=== PATIENT | male | born 1970 | race Hispanic/Latino ===

== ENCOUNTER 2022-10-19 07:54 | Emergency (ER) | payer SELFPAY ==
--- OUTSIDE RECORDS SUMMARY | 2022-10-19 07:56 | XMS REPORT | Continuity of Care Document ---
:1970 Author Organization [facility] t Address [address] [place] [address] Care Team Providers Name Role Phone Deidre Pacheco Primary Care Physician [phone] Problems This patient has no known problems. Allergies, Adverse Reactions, Alerts This patient has no known allergies or adverse reactions. Medications Ordered Filled Start Stop Current Ordering Indication Dosage Frequency Signature Comments Components Source Medication Medication Date Date Medication? Clinician (SIG) Name Name TAKE 1 No 1000 TABLET 8-11 TWICE 00:00: DAILY. 00 atorvastati No 1mg n 20 mg 8-27 tablet 00:00: 00 metformin 0 No 2mg ER 500 mg 8-24 tablet,exte 00:00: nded 00 release 24 hr Vital Signs Vital Name Observation Time Observation Value Comments Source BP Systolic 2022-06-27 16:30:00 118 mm[Hg] BP Diastolic 2022-06-27 16:30:00 70 mm[Hg] Weight Measured 2022-06-27 16:30:00 178.60 pounds Height Measured 2022-06-27 16:30:00 67.00 inches Body Temperature 2022-06-27 16:30:00 97.40 degrees Heart Rate 2022-06-27 16:30:00 80.00 /min Respiratory Rate 2022-06-27 16:30:00 BP Systolic 2021-07-10 17:17:00 BP Diastolic 2021-07-10 17:17:00 Weight Measured 2021-07-10 17:17:00 184.00 pounds Height Measured 2021-07-10 17:17:00 67.00 inches Body Temperature 2021-07-10 17:17:00 98.10 degrees Heart Rate 2021-07-10 17:17:00 79.00 /min Respiratory Rate 2021-07-10 17:17:00 16.00 /min BP Systolic 2021-07-05 08:43:00 108 mm[Hg] BP Diastolic 2021-07-05 08:43:00 66 mm[Hg] Weight Measured 2021-07-05 08:43:00 182.80 pounds Height Measured 2021-07-05 08:43:00 67.00 inches Body Temperature 2021-07-05 08:43:00 97.30 degrees Heart Rate 2021-07-05 08:43:00 73.00 /min Respiratory Rate 2021-07-05 08:43:00 16.00 /min Procedures This patient has no known procedures. Plan of Care Planned Activity Planned Date Details Comments Source Goal Plan of Care Note [code = 85882-8] Goal Plan of Care Note [code = 50569-8] Goal Plan of Care Note [code = 32499-2] Goal Plan of Care Note [code = 38692-8] Goal Plan of Care Note [code = 52531-4] Goal Plan of Care Note [code = 28952-4] Goal Plan of Care Note [code = 29479-4] Goal Plan of Care Note [code = 58834-3] Encounters Start End Encounter Admission Attending Care Care Encounter Source Date/Time Date/Time Type Type Clinicians Facility Department ID 2022-06-27 2022-06-27 Outpatient [id number]- [id number] af [id number] 00:00:00 00:00:00 Visit [id number] Results Test Description Test Time Test Comments Results Result Comments Source LIPID PANEL 2022-06-29 05:30:28 Test Item Value Reference Range Interpretation Comme nts CHOLESTEROL (test code = 2210) 199 MG/DL <200 TRIGLYCERIDES (test code = 2232) 157 MG/DL <150 H HDL CHOLESTEROL (test code = 41 MG/DL >39 2220) CALC LDL CHOL (test code = 2237) 131 MG/DL <100 H NOTE: CALCULATED LDL IS BASED ON ZHANG-QUIGLEY METHOD WHICHINCLUDES A DJUSTABLE TRIGLYCERIDE:VL DL CHOLESTEROL RATIO.THIS FACT OR VARIES BY MEASURED TRIGLY CERIDE AND NON-HDLCHOLESTE ROL CONCENTRATIONS WITH INCREASED CALCULATED LDL SEENIN HIGHER T RIGLYCERIDE OR LOWER NON-HDL S PECIMENS. FOR MOREINFORMATION , SEE CLIENT ANNOUNCEMENT AT [email or web address] Now [email or web address] [email or web address] RISK RATIO LDL/HDL (test code = 3.20 RATIO <3.55 2237) COMPREHENSIVE METABOLIC [id number] 05:30:28 Test Item Value Reference Range Interpretation Comments GLUCOSE (test code = 212 MG/DL 70-99 H 2216) BUN (test code = 17 MG/DL 6-20 2207) CREATININE (test 1.00 MG/DL 0.80-1.40 code = 221) eGFR (2020 CKD-EPI) 91 >60 (test code = 26907) ML/MIN/1.73 CALC BUN/CREAT (test 17 RATIO - code = 2235) SODIUM (test code = 140 MEQ/L 227-077 9405) POTASSIUM (test code 4.6 MEQ/L 3.5-5.4 = 2227) CHLORIDE (test code 101 MEQ/L 95-107 = 2214) CARBON DIOXIDE (test 29 MEQ/L 19-31 code = 2206) CALCIUM (test code = 9.8 MG/DL 8.5-10.5 2208) PROTEIN, TOTAL (test 7.6 G/DL 6.1-8.3 code = 2229) ALBUMIN (test code = 4.4 G/DL 3.5-5.2 2200) CALC GLOBULIN (test 3.2 G/DL 1.9-3.7 code = 2240) CALC A/G RATIO (test 1.4 RATIO 1.0-2.6 code = 2234) BILIRUBIN, TOTAL 0.4 MG/DL See_Comment [Automated message] (test code = 2207) The syste m which generated this result transmitted ref erence range: <=1.2. T he reference range was not used to int erpret this result as normal/abnormal . ALKALINE PHOSPHATASE 105 U/L 40-121 (test code = 2204) AST (test code = 18 U/L 9-50 2217) ALT (test code = 22 U/L 5-50 UNLESS OTH ERWISE 2218) INDICATED, ALL TESTING PERFORM [facility], [address] [place] [address] [facility] DIRECTOR: CASSIE JAMES M.D. CLIA NUMBER [id number] CAP ACCREDITATION N O. [id number] HEMOGLOBIN [id number] 03:47:32 Test Item Value Reference Range Interpretation Comments HEMOGLOBIN A1c (test 8.7 % 4.2-5.6 H AMERIC AN DIABETES code = 86054) ASSOCIATION IDELINES FOR HGB A1C: PREDIABETES/INC REASED RISK . . . . . . . 5.7 -6.4% DIAGNOSIS OF DI ABETES . . . . . . . . . >=6 .5% WITH CONFIRMATION OR APPROPRIATE SYMPTOMS NOTE: ASSAY MAY BE AFFECTED BY HEMOGLOBINOPATH IES (SICKLE CELL ANEMIA, S- C DISEASE, OTHERS) OR BENJA FICIALLY LOWERED BY DECR EASED RED CELL SURVIVAL ( HEMOLYTIC ANEMIAS, BLOOD LOSS, ETC.). CONSIDER ALTERN ATE TESTING OR LABORATORY C ONSULTATION. LIPID [id number] 00:00:00 Test Item Value Reference Range Interpretation Comments CHOLESTEROL (test code = 2210) 203 MG/DL TRIGLYCERIDES (test code = 2232) 231 MG/DL HDL CHOLESTEROL (test code = 2220) 38 MG/DL CALC LDL CHOL (test code = 2237) 128 MG/DL RISK RATIO LDL/HDL (test code = 3.37 RATIO 2238) LIPID [id number] 00:00:00 Test Item Value Reference Range Interpretation Comments CHOLESTEROL (test code = 2210) 203 MG/DL TRIGLYCERIDES (test code = 2232) 231 MG/DL HDL CHOLESTEROL (test code = 2220) 38 MG/DL CALC LDL CHOL (test code = 2237) 128 MG/DL RISK RATIO LDL/HDL (test code = 3.37 RATIO 2238) HEMOGLOBIN [id number] 00:00:00 Test Item Value Reference Range Interpretation Comments HEMOGLOBIN A1c (test code = 72426) 9.8 % COMPREHENSIVE METABOLIC [id number] 00:00:00 Test Item Value Reference Range Interpretation Comments GLUCOSE (test code = 2217) 206 MG/DL BUN (test code = 2208) 26 MG/DL CREATININE (test code = 2214) 0.93 MG/DL eGFR AMER. (test code 110 ML/MIN/1.73 = 31170) eGFR NON- AMER. (test 95 ML/MIN/1.73 code = 53854) CALC BUN/CREAT (test code = 28 RATIO 2235) SODIUM (test code = 2231) 136 MEQ/L POTASSIUM (test code = 2228) 4.5 MEQ/L CHLORIDE (test code = 2215) 99 MEQ/L CARBON DIOXIDE (test code = 22 MEQ/L 2206) CALCIUM (test code = 2209) 9.1 MG/DL PROTEIN, TOTAL (test code = 7.5 G/DL 222) ALBUMIN (test code = 2201) 4.3 G/DL CALC GLOBULIN (test code = 3.2 G/DL 2240) CALC A/G RATIO (test code = 1.3 RATIO 2234) BILIRUBIN, TOTAL (test code = 0.4 MG/DL 2206) ALKALINE PHOSPHATASE (test 112 U/L code = 2204) AST (test code = 2218) 30 U/L ALT (test code = 2219) 32 U/L COMPREHENSIVE METABOLIC [id number] 00:00:00 Test Item Value Reference Range Interpretation Comments GLUCOSE (test code = 2217) 206 MG/DL BUN (test code = 2208) 26 MG/DL CREATININE (test code = 2214) 0.93 MG/DL eGFR AMER. (test code 110 ML/MIN/1.73 = 72633) eGFR NON- AMER. (test 95 ML/MIN/1.73 code = 66106) CALC BUN/CREAT (test code = 28 RATIO 2235) SODIUM (test code = 2231) 136 MEQ/L POTASSIUM (test code = 2228) 4.5 MEQ/L CHLORIDE (test code = 2215) 99 MEQ/L CARBON DIOXIDE (test code = 22 MEQ/L 2206) CALCIUM (test code = 2209) 9.1 MG/DL PROTEIN, TOTAL (test code = 7.5 G/DL 2228) ALBUMIN (test code = 2201) 4.3 G/DL CALC GLOBULIN (test code = 3.2 G/DL 2240) CALC A/G RATIO (test code = 1.3 RATIO 2234) BILIRUBIN, TOTAL (test code = 0.4 MG/DL 2206) ALKALINE PHOSPHATASE (test 112 U/L code = 2204) AST (test code = 2218) 30 U/L ALT (test code = 2219) 32 U/L HEMOGLOBIN [id number] 00:00:00 Test Item Value Reference Range Interpretation Comments HEMOGLOBIN A1c (test code = 67895) 9.8 % HEMOGLOBIN [id number] 00:00:00 Test Item Value Reference Range Interpretation Comments HEMOGLOBIN A1c (test code = 84480) 9.8 %
[2022-10-19] MEDS ORDERED: FLUORESCEIN SODIUM 1 MG/WRAP ONE (08:16)
[2022-10-19] MEDS ORDERED: TETRACAINE HCL 0.5% 4ML OPTH ONE (08:16)
[2022-10-19] MEDS ORDERED: LIDOCAINE 1% MPF 5 ML VIAL ONE (08:22)
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
[2022-10-19 10:05] VITALS: TEMP 98.2
[2022-10-19 10:06] VITALS: BP 118/74; O2SAT 98
== END 2022-10-19 10:00 | disposition home or self-care (01) ==
LOC: ER 07:54
DX: S01.81XA Laceration without foreign body of other part of head, initial encounter (principal); Y09 Assault by unspecified means; F17.210 Nicotine dependence, cigarettes, uncomplicated
CPT/HCPCS: 99283; J2001